=== PATIENT | female | born 1980 | race Two or more races ===

== ENCOUNTER 2021-04-10 07:58 | Outpatient (CLI) | payer OTHER | END 2021-04-10 08:10 | disposition home or self-care (01) | LOC: MAMO-SONO 07:58 | PROVIDERS: ATTEND Internal Medicine Gastroenterology | DX: K76.0 Fatty (change of) liver, not elsewhere classified (principal); N60.01 Solitary cyst of right breast; R10.13 Epigastric pain; R19.5 Other fecal abnormalities; Z86.010 Personal history of colon polyps; N64.4 Mastodynia ==